=== PATIENT | male | born 1995 | race Two or more races ===

== ENCOUNTER 2017-10-25 13:53 | Emergency (ER) | payer OTHER ==
[~2017-10-25] VITALS: Ht 175.3 cm; Wt 99.8 kg
[~2017-10-25 13:53] MED LIST: PEPCID20 MG PO; TUSSI PRES-B L120 M1 PO; ZITHROMAX TRI-500 MG PO
== END 2017-10-25 16:42 | disposition home or self-care (01) ==
LOC: ER 13:53
DX: K29.70 Gastritis, unspecified, without bleeding (principal)

== ENCOUNTER 2018-07-02 18:56 | Emergency (ER) | payer OTHER ==
[~2018-07-02] VITALS: Ht 175.3 cm; Wt 95.3 kg
== END 2018-07-02 20:31 | disposition home or self-care (01) ==
LOC: ER 18:56
DX: S93.492A Sprain of other ligament of left ankle, initial encounter (principal); X50.3XXA Overexertion from repetitive movements, initial encounter; Y93.89 Activity, other specified; Y92.098 Other place in other non-institutional residence as the place of occurrence of the external cause; Y99.8 Other external cause status

== ENCOUNTER 2020-06-29 11:02 | Emergency (ER) | payer OTHER ==
[~2020-06-29] VITALS: Ht 172.7 cm; Wt 99.8 kg
[2020-06-29] MEDS ORDERED: AIRBORNE EFFER1 EACH PO (16:09)
[2020-06-29] MEDS ORDERED: KETO10TA2 PO (16:09)
== END 2020-06-29 16:08 | disposition home or self-care (01) ==
LOC: ER 11:02
DX: B34.9 Viral infection, unspecified (principal); Z03.818 Encounter for observation for suspected exposure to other biological agents ruled out; R51 Headache; R07.0 Pain in throat; R53.81 Other malaise

== ENCOUNTER 2025-02-15 20:55 | Emergency (ER) | payer OTHER ==
[~2025-02-15] VITALS: Ht 175.3 cm; Wt 120.2 kg
[~2025-02-15 20:55] MED LIST changes: +AIRBORNE EFFER1 EACH PO; +KETO10TA2 PO
== END 2025-02-16 00:23 | disposition home or self-care (01) ==
LOC: ER 21:16
DX: R51.9 Headache, unspecified (principal); R03.0 Elevated blood-pressure reading, without diagnosis of hypertension; I10 Essential (primary) hypertension